=== PATIENT | female | born 1995 | race Native Hawaiian/Other Pacific Islander ===

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

== ENCOUNTER 2017-04-20 15:32 | Emergency (ER) | payer MEDICAID ==
[2017-04-20] MEDS ORDERED: TESSALON PERLES PO ONE (17:48)
--- NOTE | 2017-04-20 17:51 | Emergency Department Report ---
Chief Complaint: Upper Respiratory Infection Stated Complaint: FLU SYMPTOMS Time Seen by Provider: 04/20/17 17:25 - HPI History of Present Illness: Patient is a 21-year-old female who's had a cough and congestion for approximately a week. Patient states that she's had a hacking cough with yellow sputum. Denies fever nausea vomiting diarrhea. Patient states that she is coughing to the point where she is feeling some shocking sensations going down to her left hand. Patient denies nausea vomiting at this time. Patient has no body aches. Patient does have a mild sore throat. - ROS Review of Systems: Review of systems is negative except for those elements in HPI - Exam Vital Signs: Vital Signs 04/20/17 15:38 Temperature 98.5 F Pulse Rate 98 H Respiratory 18 Rate Blood Pressure 136/86 O2 Sat by Pulse 98 Oximetry Physical Exam: Focused physical exam patient's eyes clear lungs to auscultation heart tones are normal abdomen soft nontender HEENT exam shows some small shoddy anterior cervical lymph nodes with some mild pharyngeal erythema with no exudate. There is no sinus tenderness MSE screening note: Focused history and physical exam performed. Due to findings the following was ordered: Chest x-ray will be performed as well as a rapid strep test ED Disposition for MSE Condition: Stable Referrals: ELISABET MIXON MD [Primary Care Provider] - 3-5 Days
--- NOTE | 2017-04-20 18:49 | XRay Report ---
FINAL REPORT PROCEDURE: PA and lateral chest x-ray TECHNIQUE: PA and lateral chest radiographs were obtained. CPT 51977 HISTORY: cough COMPARISON: No prior studies are available for comparison. FINDINGS: Heart: Normal. Mediastinum/Vessels: Normal. Lungs/Pleural space: Normal. Bony thorax: No acute osseous abnormality. Other: IMPRESSION: Negative examination.
--- NOTE | 2017-04-20 19:17 | Emergency Department Report ---
- General Chief Complaint: Upper Respiratory Infection Stated Complaint: FLU SYMPTOMS Time Seen by Provider: 04/20/17 17:25 Source: patient Mode of arrival: Ambulatory Limitations: No Limitations - History of Present Illness Initial Comments: This is a 21-year-old female nontoxic, well nourished in appearance, no acute signs of distress presents to the ED with c/o of cough and nasal congestion 1 week. Patient also states she has sore throat. Patient has been screened by Dr. Yin. See Dr. Yin MSE notes for HPI. Dr. Dowell obtained labs. As per patient, no changes in HPI. MD Complaint: cough, sore throat, nasal congestion -: week(s) (1) Severity: mild Severity scale (0 -10): 8 Quality: aching Consistency: constant Improves With: nothing Worsens With: nothing Associated Symptoms: nasal congestion, sore throat, cough. denies: fever, chills, myalgias, diaphoresis, headache, rhinorrhea, stiff neck, chest pain, shortness of breath, abdominal pain, nausea, vomiting, diarrhea, dysuria, rash, confusion, right sweats, weight loss, epistaxis, hoarseness, ear pain Treatments Prior to Arrival: none - Related Data Previous Rx's Medication Instructions Recorded Last Taken Type Azithromycin [Zithromax Z-EDGAR] 250 mg PO DAILY #6 tablet 04/20/17 Unknown Rx Benzonatate [Tessalon Perle] 100 mg PO Q8H #20 capsule 04/20/17 Unknown Rx Nystas/Diphen/Xyl Visc/Mylanta 15 ml MM Q8H 10 Days udc 04/20/17 Unknown Rx [Magic Mouthwash] Allergies Allergy/AdvReac Type Severity Reaction Status Date / Time No Known Allergies Allergy Verified 05/27/16 09:32 ED Review of Systems ROS: Stated complaint: FLU SYMPTOMS Other details as noted in HPI Constitutional: denies: chills, fever Eyes: denies: eye pain, eye discharge, vision change ENT: throat pain. denies: ear pain Respiratory: cough. denies: shortness of breath, wheezing Cardiovascular: denies: chest pain, palpitations Endocrine: no symptoms reported Gastrointestinal: denies: abdominal pain, nausea, diarrhea Genitourinary: denies: urgency, dysuria, discharge Musculoskeletal: denies: back pain, joint swelling, arthralgia Skin: denies: rash, lesions Neurological: denies: headache, weakness, paresthesias Psychiatric: denies: anxiety, depression Hematological/Lymphatic: denies: easy bleeding, easy bruising ED Past Medical Hx - Past Medical History Previous Medical History?: No - Surgical History Additional Surgical History: tonsillectomy - Social History Smoking Status: Never Smoker Substance Use Type: None - Medications Home Medications: Home Medications Medication Instructions Recorded Confirmed Last Taken Type Azithromycin [Zithromax Z-EDGAR] 250 mg PO DAILY #6 tablet 04/20/17 Unknown Rx Benzonatate [Tessalon Perle] 100 mg PO Q8H #20 capsule 04/20/17 Unknown Rx Nystas/Diphen/Xyl Visc/Mylanta 15 ml MM Q8H 10 Days udc 04/20/17 Unknown Rx [Magic Mouthwash] ED Physical Exam - General Limitations: No Limitations General appearance: alert, in no apparent distress - Head Head exam: Present: atraumatic, normocephalic, normal inspection - Eye Eye exam: Present: normal appearance, PERRL, EOMI. Absent: scleral icterus, conjunctival injection, nystagmus, periorbital swelling, periorbital tenderness Pupils: Present: normal accommodation - ENT ENT exam: Present: normal exam, normal orophraynx, mucous membranes moist - Expanded ENT Exam Expanded Ear exam: Present: normal external inspection Mouth exam: Present: normal external inspection Teeth exam: Present: normal inspection Throat exam: Positive: tonsillar erythema, tonsillomegaly (2+), other (no abscess or swelling noted.). Negative: tonsillar exudate, R peritonsillar mass , L peritonsillar mass - Neck Neck exam: Present: normal inspection, full ROM, lymphadenopathy (anterior cervical ). Absent: tenderness, meningismus - Respiratory Respiratory exam: Present: normal lung sounds bilaterally. Absent: respiratory distress, wheezes, rales, rhonchi, stridor, chest wall tenderness, accessory muscle use, decreased breath sounds, prolonged expiratory - Cardiovascular Cardiovascular Exam: Present: regular rate, normal rhythm, normal heart sounds. Absent: irregular rhythm, systolic murmur, diastolic murmur, rubs, gallop - GI/Abdominal GI/Abdominal exam: Present: soft, normal bowel sounds. Absent: distended, tenderness, guarding, rebound, rigid, diminished bowel sounds - Rectal Rectal exam: Present: deferred - Extremities Exam Extremities exam: Present: normal inspection, full ROM, normal capillary refill. Absent: tenderness, pedal edema, joint swelling, calf tenderness - Back Exam Back exam: Present: normal inspection, full ROM. Absent: tenderness, CVA tenderness (R), CVA tenderness (L), muscle spasm, paraspinal tenderness, vertebral tenderness, rash noted - Neurological Exam Neurological exam: Present: alert, oriented X3, CN II-XII intact, normal gait, reflexes normal - Psychiatric Psychiatric exam: Present: normal affect, normal mood - Skin Skin exam: Present: warm, dry, intact, normal color. Absent: rash ED Course Vital Signs 04/20/17 15:38 Temperature 98.5 F Pulse Rate 98 H Respiratory 18 Rate Blood Pressure 136/86 O2 Sat by Pulse 98 Oximetry - Reevaluation(s) Reevaluation #1: 04/20/17 19:17 Patient is speaking in full sentences with no signs of distress noted. - Consultations Consultation #1: 04/20/17 19:21 Patient and results discussed with Dr. Yin and agrees to the discharge plan of care. ED Medical Decision Making - Medical Decision Making this is a 21-year-old female that presents with upper resp infection and tonsillitis. Patient is stable and was examined by Dr. yin and myself. Patient is screened by Dr. Yin. See HPI MSE Dr. Dowell noted. As per patient , no physcial changes or HPI changes. Chest x-ray and strep within normal limits and compared by radiologist. Patient notified of x-ray results. As noted by the patient. Patient discharged with Z-Edgar and Magda Ji. Patient was instructed Follow-up with a primary care doctor in 3-5 days or if symptoms worsen and continue return to emergency room as soon as possible. At time time of discharge, the patient does not seem toxic or ill in appearance. No acute signs of distress noted. Patient agrees to discharge treatment plan of care. No further questions noted by the patient. Critical care attestation.: If time is entered above; I have spent that time in minutes in the direct care of this critically ill patient, excluding procedure time. ED Disposition Clinical Impression: Tonsillitis Upper respiratory infection Qualifiers: URI type: unspecified URI Qualified Code(s): J06.9 - Acute upper respiratory infection, unspecified Disposition: DC-01 TO HOME OR SELFCARE Is pt being admited?: No Does the pt Need Aspirin: No Condition: Stable Instructions: Upper Respiratory Infection (ED), Tonsillitis (ED), Azithromycin (By mouth), Benzonatate (By mouth) Additional Instructions: Follow-up with a primary care doctor in 3-5 days or if symptoms worsen and continue return to emergency room as soon as possible. Prescriptions: Azithromycin [Zithromax Z-EDGAR] 250 mg PO DAILY #6 tablet Benzonatate [Tessalon Perle] 100 mg PO Q8H #20 capsule Nystas/Diphen/Xyl Visc/Mylanta [Magic Mouthwash] 15 ml MM Q8H 10 Days udc Referrals: ELISABET MIXON MD [Primary Care Provider] - 3-5 Days MELLISSA BEATTY MD [Staff Physician] - 3-5 Days [facility] [Outside] - 3-5 Days [facility] [Outside] - 3-5 Days Forms: Work/School Release Form(ED)
[2017-04-20 19:35] VITALS: BP 128/82
== END 2017-04-20 19:35 | disposition home or self-care (01) ==
LOC: ED 15:32
DX: J03.90 Acute tonsillitis, unspecified (principal); Z90.89 Acquired absence of other organs
CPT/HCPCS: 71020; 87116; 87430; 99283